=== PATIENT | male | born 1980 | race Two or more races ===

== ENCOUNTER 2020-11-22 09:59 | Day surgery (SDC) | payer OTHER ==
[2020-11-18 16:32] VITALS: BMI 28.2
[2020-11-22] MEDS ORDERED: LIDOCAINE HCL/PF 2% SDV 5ML VIAL ONE (10:31)
[2020-11-22] MEDS ORDERED: PROPOFOL 20 ML ONE ×3 (10:31)
[2020-11-22 10:38] VITALS: TEMP 98.4
[2020-11-22 12:17] VITALS: BP 130/82; PULSE 80
== END 2020-11-22 12:20 | disposition home or self-care (01) ==
LOC: FASU-ENDO 09:59
PROVIDERS: ATTEND Internal Medicine Gastroenterology
PROC: 0DB78ZX Excision of Stomach, Pylorus, Via Natural or Artificial Opening Endoscopic, Diagnostic (ICD-10-PCS; 2020-11-22)
PROC: 0DB48ZX Excision of Esophagogastric Junction, Via Natural or Artificial Opening Endoscopic, Diagnostic (ICD-10-PCS; 2020-11-22)
PROC: 0DB98ZX Excision of Duodenum, Via Natural or Artificial Opening Endoscopic, Diagnostic (ICD-10-PCS; principal; 2020-11-22 11:31)
DX: K29.70 Gastritis, unspecified, without bleeding (principal); K21.00 Gastro-esophageal reflux disease with esophagitis, without bleeding; K22.8 Other specified diseases of esophagus; R10.13 Epigastric pain; R19.5 Other fecal abnormalities

== ENCOUNTER 2021-01-17 08:53 | Day surgery (SDC) | payer OTHER ==
[2021-01-10 12:17] VITALS: BMI 28.2
[2021-01-17] MEDS ORDERED: PROPOFOL 20 ML ONE ×2 (10:22)
[2021-01-17] MEDS ORDERED: LIDOCAINE HCL/PF 2% SDV 5ML VIAL ONE (10:22)
[2021-01-17 10:41] VITALS: BP 121/85; PULSE 69; TEMP 98
== END 2021-01-17 10:45 | disposition home or self-care (01) ==
LOC: FASU-ENDO 08:53
PROVIDERS: ATTEND Internal Medicine Gastroenterology
PROC: 0DJD8ZZ Inspection of Lower Intestinal Tract, Via Natural or Artificial Opening Endoscopic (ICD-10-PCS; principal; 2021-01-17 09:55)
DX: K92.1 Melena (principal); K64.0 First degree hemorrhoids

== ENCOUNTER 2021-02-24 11:59 | Day surgery (SDC) | payer OTHER ==
[2021-02-20 16:13] VITALS: BMI 28.2
[2021-02-24 13:48] VITALS: TEMP 97.3
[2021-02-24 14:10] VITALS: BP 138/72; PULSE 72
== END 2021-02-24 14:12 | disposition home or self-care (01) ==
LOC: FASU-ENDO 11:59
PROVIDERS: ATTEND Internal Medicine Gastroenterology
PROC: 0DBM8ZX Excision of Descending Colon, Via Natural or Artificial Opening Endoscopic, Diagnostic (ICD-10-PCS; principal; 2021-02-24 13:18)
DX: D12.4 Benign neoplasm of descending colon (principal); K92.1 Melena; K64.0 First degree hemorrhoids
CPT/HCPCS: 88305-TC